=== PATIENT | male | born 1985 | race Caucasian/White ===

== ENCOUNTER 2022-11-03 11:45 | Outpatient (REF) | payer MEDICAID, SELFPAY ==
--- NOTE | ~2022-11-03 | XR_ITS ---
STUDY: Bilateral hands INDICATION: Bilateral hand pain TECHNIQUE: 3 view each hand FINDINGS: Right: Healed fracture mid right fifth metacarpal. No acute fracture or dislocation. Alignment and articulations are maintained. No bony erosions are thickened joint space narrowings. Left: No fracture or dislocation. Normal alignment and articulations. No bony erosions or significant joint disease. No focal soft tissue swelling. XR/XR hand LT min 3V IMPRESSION: Healed right fifth metacarpal fracture otherwise unremarkable hands.
--- NOTE | ~2022-11-03 | XR_ITS ---
STUDY: Bilateral hands INDICATION: Bilateral hand pain TECHNIQUE: 3 view each hand FINDINGS: Right: Healed fracture mid right fifth metacarpal. No acute fracture or dislocation. Alignment and articulations are maintained. No bony erosions are thickened joint space narrowings. Left: No fracture or dislocation. Normal alignment and articulations. No bony erosions or significant joint disease. No focal soft tissue swelling. XR/XR hand RT min 3V IMPRESSION: Healed right fifth metacarpal fracture otherwise unremarkable hands.
== END 2022-11-03 11:46 | disposition home or self-care (01) ==
LOC: HO.HOSX 11:45
PROVIDERS: Visit Provider Physician Assistant
DX: M18.11 Unilateral primary osteoarthritis of first carpometacarpal joint, right hand (principal); M79.642 Pain in left hand
CPT/HCPCS: 20600; 73130; 99203; J1020

== ENCOUNTER 2022-11-03 14:54 | Outpatient (AMB) | payer MEDICAID, SELFPAY ==
[2022-11-03 15:12] VITALS: BMI 23.9
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
== END 2022-11-03 15:42 | disposition home or self-care (01) ==
PROVIDERS: Visit Provider Physician Assistant
DX: M18.11 Unilateral primary osteoarthritis of first carpometacarpal joint, right hand (principal)
CPT/HCPCS: 20600; 99203

== ENCOUNTER 2024-10-08 10:08 | Outpatient (REF) | payer MEDICAID, SELFPAY ==
--- OUTSIDE RECORDS SUMMARY | 2024-10-08 10:46 | XMS_ITS | Encounter Summary ---
Author Organization [employer] Address [address] [place] [address] [address] [place] [address] Care Team Providers Care Public Health Social Worker Name Role Phone Marissa Matos Primary Care Provider [phone] Encounter Details Date Type Department Care Team (Late st Contact Info) Description 04/02/2022 Abstract [facility] [address] [place] [address] Gavin Villegas DDS [address] [place] [address] Social History Tobacco Use Types Packs/Day Years Used Date Smoking Tobacco: Never Assessed Sex and Gender Information Value Date Recorded Sex Assigned at Male 02/08/2022 10:19 AM EDT Legal Sex Male 10:19 AM EDT Gender Identity Male 02/08/2022 10:19 AM EDT Sexual Orientation Don't know 02/08/2022 10 :19 AM EDT documented as of this encounter Plan of Treatment Upcoming Encounters Date Type Department Care Team (Late st Contact Info) Description 01/07/2025 11:30 AM EDT Office Visit [facility] [address] [place] [address] Marissa Matos FNP [address] [place] [address] documented as of this encounter Visit Diagnoses Not on filedocumented in this encounter Care Teams Public Health Social Worker Relationship Specialty Start Date End Date Marissa Matos FNP [address] [place] [address] PCP - General Family Medicine 12/06/21 documented as of this encounter
[2024-10-08 14:52] LABS: MANUAL DIFF FLAG NO
[2024-10-08 14:56] LABS: Basophils Percent Auto 0.7 % (0-2); Eosinophils Absolute Auto 0.3 X10*3/uL (0.0-0.4); Eosinophils Percent Auto 5.1 % (0-4); Hematocrit 40.5 % (42.0-52.0); Hemoglobin 13.8 g/dl (14.0-18.0); Imm Gran Abs Auto 0.02 X10*3/uL (0.00-0.03); Imm Gran Pct Auto 0.3 % (0.0-0.4); Lymphocytes Absolute Auto 1.5 X10*3/uL (1.2-4.9); Lymphocytes Percent Auto 24.7 % (20-40); Mean Corpuscular HGB Conc 34.1 g/dl (31.0-36.0); Mean Corpuscular Hemoglobin 30.5 pg (27.0-33.0); Mean Corpuscular Volume 89.4 fL (80.0-98.0); Mean Platelet Volume 10.9 fL (9.4-12.4); Monocytes Absolute Auto 0.5 X10*3/uL (0.1-1.2); Monocytes Percent Auto 8.8 % (2-11); Neutrophils Absolute Auto 3.7 x10*3/uL (2.0-8.3); Neutrophils Percent Auto 60.4 % (45-73); Platelet Count 243 X10*3/uL (160-400); Red Blood Count 4.53 X10*6/uL (4.60-5.80); Red Cell Distribution Width 12.6 % (11.0-16.0); White Blood Count 6.1 X10*3/uL (4.8-10.8)
[2024-10-08 15:09] LABS: Estimated Average Glucose 108 mg/dL; Hemoglobin A1C 125.4179 umol/L; Hemoglobin A1c % 5.4 % (<6.0); Total Hemoglobin (HGBA1C) 3580.0009 umol/L
[2024-10-08 15:31] LABS: Alanine Aminotransferase 67 U/L (0-40); Albumin Level 4.4 g/dL (3.5-5.0); Alkaline Phosphatase 50 U/L (39-117); Anion Gap 10 (12-20); Aspartate Amino Transferase 43 U/L (5-37); Bilirubin Total 0.4 mg/dL (0.0-1.0); Blood Urea Nitrogen 12 mg/dL (9-16); Calcium 9.1 mg/dL (8.4-10.2); Carbon Dioxide 27 mmol/L (22-29); Chloride 105 mmol/L (96-108); Cholesterol 241 mg/dL (<200); Estimated Glomerular Filt Rate > 60; Glucose Random 105 mg/dL (60-115); HDL Cholesterol 40 mg/dL (>40); LDL Cholesterol Calculated 165 mg/dL (<100); Potassium 4.2 mmol/L (3.3-5.1); Sodium 138 mmol/L (135-145); Total Protein 7.6 g/dL (6.5-8.0); Triglycerides 182 mg/dL (<150)
[2024-10-08 15:33] LABS: TSH reflex Free T4 1.27 uIU/mL (0.32-4.0)
[2024-10-09 04:32] LABS: HIV AB/AG Nonreactive (Nonreactive); HIV Num 1 0.06 S/CO (0.00-0.99)
[2024-10-09 12:13] LABS: RPR Rapid Plasma Reagin NON-REACTIVE (NON-REACTIVE)
[2024-10-10 21:44] LABS: HCV Log PCR <1.18 NOT DETECTED Log IU/mL (NOT DETECTED); HepC Viral Load <15 NOT DETECTED IU/mL (NOT DETECTED)
== END 2024-10-08 10:09 | disposition home or self-care (01) ==
LOC: HO.CHCLDS 10:08
PROVIDERS: Visit Provider Registered Nurse
DX: Z00.00 Encounter for general adult medical examination without abnormal findings (principal)
CPT/HCPCS: 36415; 80053; 80061; 83036; 84443; 85025; 86592; 87389; 87522